=== PATIENT | female | born 1985 | race Caucasian/White ===

== ENCOUNTER 2016-10-23 00:59 | Emergency (ER) | payer SELFPAY ==
[~2016-10-23] VITALS: Ht 175.3 cm; Wt 63.5 kg
--- NOTE | 2016-10-23 01:38 | NUR ---
31 YP FEMALE BB SELF. RT FLANK PAIN RADIATES TO RUQ ABD X FRIDAY, NAUSEA NO VOMITING. PT AMBULATED TO ER BED, SKIN WARM AND DRY, RR EVEN AND UNLABORED. PT GOWNED, PLACED ON NUTRITION REPRESENTATIVE. AWAITING ORDERS FROM PROVIDER, WILL CONTINUE TO MONITOR
[2016-10-23 02:12] LABS: APPEARANCE,URINE SL CLOUDY (CLEAR); BILIRUBIN,URINE NEGATIVE (NEGATIVE); BLOOD, URINE 3+ Ery/uL (NEGATIVE); COLOR,URINE YELLOW (YELLOW); KETONES,URINE NEGATIVE (NEGATIVE); LEUKOCYTE ESTERASE ,URINE 3+ (NEGATIVE); NITRITE, URINE NEGATIVE (NEGATIVE); PH,URINE 6.5 (5.0-8.0); PROTEIN,URINE TRACE mg/dl (NEGATIVE); UGLUCOSE NEGATIVE (NEGATIVE); UROBILINOGEN,URINE 0.2 EU/dL (0.2)
[2016-10-23 02:15] LABS: PREGNANCY TEST URINE QUAL NEGATIVE (NEGATIVE)
[2016-10-23 02:19] LABS: BACTERIA,URINE 1+ /HPF (None Seen); SQUAMOUS EPITHELIAL CELL,UR Few /HPF (None Seen); WBC,URINE 21-50 /HPF (0-3)
[2016-10-23] MEDS ORDERED: CEPHALEXIN MONOHYDRATE 500 MG CAPSULE PO ONE ×2 (03:30→03:45)
[2016-10-23] MEDS ORDERED: NITROFURANTOIN/NITROFURAN MAC 100 MG CAPSULE PO ONE (03:30)
--- NOTE | 2016-10-23 03:30 | NUR ---
medicated pt as ordered
[2016-10-23] MEDS ORDERED: NITROFURANTOIN/NITROFURAN MAC 100 MG CAPSULE ONE (03:45)
[2016-10-23] MEDS ORDERED: oxyCODONE/APAP (5/325 MG) 1 UDTAB TABLET ONE (03:51)
[2016-10-23 04:00] VITALS: BP 140/74
[2016-10-23] MEDS ORDERED: oxyCODONE/APAP (5/325 MG) 1 UDTAB TABLET PO ONE (04:00)
--- NOTE | 2016-10-23 04:01 | NUR ---
Patient discharged to home in stable condition. Written and verbal after care instructions given. Patient verbalizes understanding of instruction. pt ambulatory with a steady gait VITAL SIGNS WITHIN NORMAL LIMITS.
== END 2016-10-23 04:02 | disposition home or self-care (01) ==
LOC: ER 00:59
DX: N12 Tubulo-interstitial nephritis, not specified as acute or chronic (principal); R10.9 Unspecified abdominal pain; N84.0 Polyp of corpus uteri; Z87.440 Personal history of urinary (tract) infections; Z87.442 Personal history of urinary calculi
CPT/HCPCS: 81001; 84703; 87086; 99284; A4606; Z7610; 81000-TC; 87186-TC